=== PATIENT | male | born 1995 | race Asian ===

== ENCOUNTER 2017-01-10 01:12 | Emergency (ER) | payer SELFPAY ==
[~2017-01-10] VITALS: Ht 165.1 cm; Wt 63.5 kg
[2017-01-10] MEDS ORDERED: ONDANSETRON HCL/PF 4 MG/2 ML VIAL IVP ONE (01:30)
[2017-01-10] MEDS ORDERED: IV NS 0.9% 1,000 ML BAG IV ONE (01:30)
[2017-01-10] MEDS ORDERED: PANTOPRAZOLE 40 MG VIAL IV ONE (01:30)
--- NOTE | 2017-01-10 01:30 | NUR ---
22 YO MALE BB RA FROM WORK. PT C/O NAUSEA/ VOMIT. PT IS ACTIVELY VOMITTING. PT ASSISTED TO ER BED VIA EMS. SKIN WARM AND DRY, RR EVEN AND UNLABORED. PT GOWNED, PLACED ON MANAGER BABY. AWAITING ORDERS FROM PROVIDER, WILL CONTINUE TO MONITOR
[2017-01-10] MEDS ORDERED: IV NS 0.9% 1,000 ML ONE (01:31)
[2017-01-10] MEDS ORDERED: ONDANSETRON HCL/PF 4 MG/2 ML VIAL ONE (01:31)
[2017-01-10] MEDS ORDERED: PANTOPRAZOLE 40 MG VIAL ONE (01:31)
[2017-01-10] MEDS ORDERED: IV SET PRIMARY 1 EA INFUS.SET MC ONE (01:31)
--- NOTE | 2017-01-10 01:43 | NUR ---
R AC 18G IV STARTED, MEDICATED PT ORDERED
[2017-01-10 01:47] LABS: BASOPHILS % (AUTO) 0.3 % (0.0-2.0); EOSINOPHILS % (AUTO) 0.6 % (0.0-6.0); HEMATOCRIT 49 % (39-51); HEMOGLOBIN 15.7 g/dL (13.5-17.5); LYMPHOCYTES # (AUTO) 1.9 /CMM (0.8-4.8); LYMPHOCYTES % (AUTO) 30.7 % (20.0-44.0); MEAN CORPUSCULAR HEMOGLOBIN 25 PG (26.0-33.0); MEAN CORPUSCULAR HGB CONC 32 g/dl (31.0-36.0); MEAN CORPUSCULAR VOLUME 77 fL (80-96); MONOCYTES # (AUTO) 0.2 /CMM (0.1-1.30); MONOCYTES % (AUTO) 3.7 % (2.0-12.0); NEUTROPHILS # (AUTO) 4.1 /CMM (1.8-8.9); NEUTROPHILS % (AUTO) 64.7 % (43.0-81.0); PLATELET COUNT (AUTO) 220 /CMM (150-450); RDW COEFFICIENT OF VARIATION 14.3 (11.5-15.0); RED BLOOD CELL COUNT(AUTO) 6.37 MIL/uL (4.5-6.0); WHITE BLOOD COUNT (AUTO) 6.3 K/uL (4.3-11.0)
[2017-01-10 01:56] LABS: CALCIUM, SERUM 8.9 mg/dL (8.5-10.1); POTASSIUM 3.9 mmol/L (3.5-5.1)
[2017-01-10] MEDS ORDERED: NITROGLYCERIN PACKET 1 GM PACKET TD ONE (02:00)
[2017-01-10] MEDS ORDERED: ASPIRIN 81 MG TAB.CHEW PO ONE (02:00)
[2017-01-10 02:03] LABS: ALBUMIN 4.4 g/dL (3.4-5.0); BILIRUBIN,DIRECT 0.1 mg/dL (0.0-0.2); BILIRUBIN,TOTAL 0.4 mg/dL (0.2-1.0); TOTAL PROTEIN, SERUM 7.9 g/dL (6.4-8.2)
[2017-01-10] MEDS ORDERED: MECLIZINE HCL 25 MG TABLET PO ONE (03:00)
[2017-01-10] MEDS ORDERED: NITROGLYCERIN PACKET 1 GM PACKET ONE (03:06)
[2017-01-10] MEDS ORDERED: ASPIRIN 81 MG TAB.CHEW ONE (03:06)
[2017-01-10] MEDS ORDERED: MECLIZINE HCL 25 MG TABLET ONE (03:06)
--- NOTE | 2017-01-10 03:24 | NUR ---
MEDICATED PT ORDERED
--- NOTE | 2017-01-10 04:35 | NUR ---
PT IS AWAKE, ALERT, FOLLOWING COMMANDS, DENIES ANY PAIN, SOB. MD NOTIFIED. PT AMBULATED TO ER RESTROOM WITH STEADY GAIT.
[2017-01-10 05:14] VITALS: BP 133/79
--- NOTE | 2017-01-10 05:15 | NUR ---
Patient discharged to home in stable condition. Written and verbal after care instructions given. Patient verbalizes understanding of instruction.IV removed. Catheter intact and site benign. Pressure and 4x4 applied to site. No bleeding noted. PT ambulatory with a steady gait VITAL SIGNS WITHIN NORMAL LIMITS.
== END 2017-01-10 05:16 | disposition home or self-care (01) ==
LOC: ER 01:14
DX: R42 Dizziness and giddiness (principal); R11.2 Nausea with vomiting, unspecified
CPT/HCPCS: 36415; 70450; 71010; 74176; 80048; 80076; 83690; 84484; 85025; 93005; 96361; 96374; 96375; 99285; A4606; C9113; G0480; J2405; J7030; J8597; Z7610